=== PATIENT | male | born 1945 | race Caucasian/White ===

== ENCOUNTER 2024-05-06 06:31 | Day surgery (SDC) | payer MEDICARE, OTHER ==
[~2024-05-06] VITALS: Ht 188 cm; Wt 93.4 kg
[~2024-05-06 06:31] MED LIST: ACETYL L-CARNI500 MG PO; ASPIRIN EC81 MG; FISH OIL 1,0001 EAC2; LIPOIC ACID1 GM PO; MIDAZOLAM HCL 5 MG/5 ML VIAL IV PRN; MIDAZOLAM HCL 5 MG/5 ML VIAL ONE; RED YEAST RICE600 MG; fentaNYL citrate 100 MCG/2 ML VIAL IV PRN; fentaNYL citrate 100 MCG/2 ML VIAL ONE
[2024-05-06 06:52] VITALS: BP 125/78
[2024-05-06] MEDS ORDERED: EZETIMIBE10 MG PO (06:58)
[2024-05-06] MEDS ORDERED: MULTIVITAMIN1 EACH PO (06:58)
[2024-05-06] MEDS ORDERED: IBLOOD GLUCOSE TEST STRIP 1 EA TEST VI PRN (07:00)
[2024-05-06] MEDS ORDERED: LACTATED RINGER'S 1,000 ML IV SCH (07:00)
--- NOTE | 2024-05-06 07:35 | NUR ---
PT NOT AVAILABLE FOR VISIT. PROVIDED PRAYER.
--- NOTE | 2024-05-06 07:51 | NUR ---
05/06/24 0751 Jhoana Chaudhary 0746 PT TO PACU SLEEPING, HE RESPONDS TO VERBAL STIMULI. PT DENIES PAIN AND NAUSEA.
[2024-05-06 08:31] VITALS: BP 112/70
--- NOTE | 2024-05-06 08:52 | OR ---
[facility] [address], [place] [address] Signed DATE OF OPERATION: 05/06/2024 SURGEON: South Sorensen MD PREOPERATIVE DIAGNOSES: 1. Screening. 2. Internal hemorrhoids. POSTOPERATIVE DIAGNOSIS: Minimal internal hemorrhoids. PROCEDURE: Colonoscopy without biopsy. ESTIMATED BLOOD LOSS: None. 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 He underwent colonoscopy with Dr. Camacho Simmons in 2002 at the age of 56. He did well with 7 mg of Versed and 100 mg of Demerol. His colonoscopy was unremarkable. I helped him in 2012 at the age of 66. He had minimal internal hemorrhoid tissue. He did well with versed and fentanyl. We kept him on the 10 year plan. He has no lower GI complaints. He has no family history of colon cancer or polyps. He has a remote history of premature ventricular contractions. He had been to a electrical control assembler. Everything went fine. He had carpal tunnel surgery earlier this year and that went fine as well. He goes to the athletic club every day to exercise including his pickle ball. In fact, his heart rate was 48 today. In the office, I gave him a pamphlet on colonoscopy. We reviewed the nature of the test. Of course, he has performed colonoscopies as a veterinary physician. There is risk including, but not limited to gas bloating, crampy abdominal pain, bleeding, perforation requiring surgery, and missed diagnosis. We also reviewed the written instructions for the bowel prep line by line. It is the same bowel prep he took in 2013. He understands the need for IV conscious sedation. He said his will take him home afterwards. He had expressed understanding and wished to proceed. PROCEDURE IN DETAIL: Tres was taken in the endoscopy suite and placed in the left lateral decubitus position. He was given 5 mg of Versed and 125 mcg of fentanyl to cover the case. A digital rectal exam was performed. There were no external hemorrhoids. He had good Electronically Signed By: SOUTH SORENSEN MD 05/06/24 0852 PATIENT NAME: TRES NOLEN OPERATIVE REPORT DATE OF : 49 REPORT #: [id number] PHYSICIAN: SOUTH SORENSEN MD PCP: TAMIKO NEWTON MD REPORT IS CONFIDENTIAL AND NOT TO BE RELEASED WITHOUT AUTHORIZATION [facility] [address], [place] [address] Signed sphincter tone. There were no masses. His prostate was moderately indurated and enlarged. It was symmetrical bilaterally. The adult colonoscope was introduced and advanced under direct visualization of the camera. It took just a little extra sedation and some abdominal compression to get the scope directly into the cecum itself. The scope was then slowly withdrawn. We took pictures throughout for photodocumentation. His prep was good. We saw no pathology throughout the entire colon or rectum. Once again, he has minimal internal hemorrhoid tissues. The gas was not suctioned out. The colonoscope removed. Tres tolerated the procedure quite well. RECOMMENDATIONS: Tres understands it with no family history and three negative colonoscopies he does not necessarily need to return for additional colonoscopies in the future. However, he is quite healthy and he is going to live well into his 80s. He might consider a repeat colonoscopy in 10 years. He will cross that bridge at that time. South Sorensen MD ALB/MODL /[id number] cc: South Sorensen MD Patient Chart Dr. Tamiko Newton Copies: SOUTH SORENSEN MD ~ Electronically Signed By: SOUTH SORENSEN MD 05/06/24 0852 PATIENT NAME: TRES NOLEN OPERATIVE REPORT DATE OF : 49 REPORT #: [id number] PHYSICIAN: SOUTH SORENSEN MD PCP: TAMIKO NEWTON MD REPORT IS CONFIDENTIAL AND NOT TO BE RELEASED WITHOUT AUTHORIZATION
== END 2024-05-06 08:40 | disposition home or self-care (01) ==
LOC: DS 06:31 → DSVR 06:32 → DS 07:30
PROVIDERS: ATTEND Colon & Rectal Surgery
PROC: 0DJD8ZZ Inspection of Lower Intestinal Tract, Via Natural or Artificial Opening Endoscopic (ICD-10-PCS; principal; 2024-05-06 07:30)
DX: Z12.11 Encounter for screening for malignant neoplasm of colon (principal); K64.8 Other hemorrhoids; E78.5 Hyperlipidemia, unspecified
CPT/HCPCS: 99153; G0500; J2250; J3010

== ENCOUNTER 2024-08-31 18:36 | Emergency (ER) | payer MEDICARE, OTHER ==
[~2024-08-31] VITALS: Ht 188 cm; Wt 93.4 kg
--- OUTSIDE RECORDS SUMMARY | ~2024-08-31 | XMS | Continuity of Care Document ---
Demographics + + + | Address | [address] | | | [place] [address] | + + + | Preferred Language | Unknown | + + + | Marital Status | Unknown | + + + | Congregational Affiliation | Unknown | + + + | Race | White | + + + | Ethnic Group | Not or | + + + Author + + + | Author | [facility] | + + + | Organization | [facility] | + + + | Address | [address] | | | [place] [address] | + + + | Phone | | + + + Care Team Providers + + + + | Care Lead Pourer Name | Role | Phone | + + + + Unavailable | Unavailable | + + + + Allergies No information. Encounters No information. Functional Status No information. Immunizations No information. Medications No information. Problems + + + + | date | description | facility | + + + + | 2024-08-29 15:26:08 | Dizziness | [facility] | + + + + | 2024-08-29 15:26:08 | Headache | [facility] | + + + + | 2024-08-29 16:35:46 | Dehydration | [facility] | + + + + | 2024-08-29 16:35:46 | Unspecified atrial | [facility] | | | fibrillation (CMS/HCC V24, | | | | CMS/HCC V28) | | + + + + | 2024-08-29 16:35:46 | Dizziness and giddiness | [facility] | + + + + Procedures No information. Results/Labs No information. Social History +--------+ + + | date | description | facility | +--------+ + + Vital Signs No information."
[~2024-08-31 18:36] MED LIST changes: +EZETIMIBE10 MG PO; -MIDAZOLAM HCL 5 MG/5 ML VIAL IV PRN; -MIDAZOLAM HCL 5 MG/5 ML VIAL ONE; +MULTIVITAMIN1 EACH PO; -fentaNYL citrate 100 MCG/2 ML VIAL IV PRN; -fentaNYL citrate 100 MCG/2 ML VIAL ONE
--- OUTSIDE RECORDS SUMMARY | 2024-08-31 18:45 | XMS ---
PreManage Notification: TRES NOLEN [employer] Monitor Events No recent Security Events currently on file CRITERIA MET - [facility] - 2 Visits in 30 Days CARE PROVIDERS There are no care providers on record at this time. Andrae has no Care Guidelines for this patient. Pati VISIT COUNT (12 MO.) 1 [facility] TOTAL 2 NOTE: Visits indicate total known visits. ED/C VISIT TRACKING (12 MO.) 08/31/2024 18:39 [facility] [place] TYPE: Emergency COMPLAINT: - MEDICAL ISSUES 08/29/2024 15:26 [facility] TYPE: Emergency COMPLAINT: - dizziness DIAGNOSES: - Dehydration - Dizziness and giddiness - Unspecified atrial fibrillation - dizziness - Headache INPATIENT VISIT TRACKING (12 MO.) No inpatient visits to display in this time frame [email or web address]
[2024-08-31] MEDS ORDERED: DOXYCYCLINE HYCLATE 100 MG CAP PO ONE (20:15)
[2024-08-31] MEDS ORDERED: DOXYCYCLINE HY100 MG PO (20:49)
[2024-08-31 21:09] LABS: BASOPHILS 0.4 % (0.2-1.2); EOSINOPHILS 1.2 % (0.8-7.0); HEMOGLOBIN 14.2 g/dL (13.7-17.5); LYMPHOCYTES 46.9 % (21.8-53.1); MCH 31.3 PG (25.7-32.2); MCV 94.9 fL (79.0-92.2); NEUTROPHILS 37.1 % (34.0-67.9); PLATELET COUNT 129 K/uL (163-337); RBC 4.53 M/uL (4.63-6.08)
[2024-08-31 21:23] LABS: ALBUMIN 3.2 g/dL (3.4-5.0); ALBUMIN/GLOBULIN RATIO 0.91 (1.1-2.4); ANION GAP 8.4 (7-21); BILIRUBIN, TOTAL 0.4 mg/dL (0.2-1.0); BUN/CREATININE RATIO 15.5 (6.0-28.6); CALCIUM 8.6 mg/dL (8.5-10.1); CREATININE, SERUM 1.29 mg/dL (0.70-1.30); POTASSIUM 4.4 mmol/L (3.5-5.1); PROTEIN, TOTAL 6.7 g/dL (6.4-8.2)
[2024-08-31 21:33] VITALS: BP 124/83
[2024-09-03] MEDS ORDERED: PEPCID20 MG PO (12:55)
[2024-09-03] MEDS ORDERED: ONDANSETRON ODT4 MG PO (12:55)
[2024-09-03] MEDS ORDERED: OMEPRAZOLE20 MG PO (12:55)
== END 2024-08-31 21:33 | disposition home or self-care (01) ==
LOC: ED 18:36
PROVIDERS: Internal Medicine
DX: S00.06XA Insect bite (nonvenomous) of scalp, initial encounter (principal); E78.00 Pure hypercholesterolemia, unspecified; W57.XXXA Bitten or stung by nonvenomous insect and other nonvenomous arthropods, initial encounter; Z79.899 Other long term (current) drug therapy; Z91.010 Allergy to peanuts; Z91.018 Allergy to other foods
CPT/HCPCS: 36415; 80053; 85025; 85060; 86618; 99282